=== PATIENT | male | born 1975 | race Caucasian/White ===

== ENCOUNTER → 2017-09-02 | Outpatient (CLI) | payer OTHER ==
[~2017-09-02] MED LIST: BUPR200T PO; CHOL500016 PO; CYPR4TAB PO; DICL50TA4 PO; HYDR40TA PO; IOHEXOL 180 MG/ML 10 ML VIAL. ONE; LAMO25TA PO; OXYC-328 PO; PRAZ5CAP2 PO; SERT100T PO; methylPREDNISolone ACETATE 40 MG/ML VIAL. ONE; methylPREDNISolone ACETATE 80 MG/ML VIAL. ONE
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
== END | disposition home or self-care (01) ==
LOC: PNCL 11:00
PROVIDERS: ATTEND Anesthesiology
DX: M50.123 Cervical disc disorder at C6-C7 level with radiculopathy (principal); M19.91 Primary osteoarthritis, unspecified site; H91.90 Unspecified hearing loss, unspecified ear; K21.9 Gastro-esophageal reflux disease without esophagitis; Z87.891 Personal history of nicotine dependence; Z98.890 Other specified postprocedural states
CPT/HCPCS: 62321; J1030; J1040

== ENCOUNTER → 2019-07-13 | Outpatient (CLI) | payer OTHER ==
[~2019-07-13] MED LIST changes: +CYCL10TA2 PO; -CYPR4TAB PO; +CYPR4TAB31 PO; +FLUO20CA8 PO; +GABA300C18 PO; -LAMO25TA PO; +LAMO25TA9 PO; +MELO15TA23 PO; -OXYC-328 PO; +OXYC1TAB22 PO; +RISP1TAB43 PO; +RISP2TAB33 PO
--- NOTE | 2019-07-13 23:06 | PAIN ---
DATE OF SERVICE: 07/13/2019 PROGRESS NOTE FOR PAIN CLINIC DIAGNOSES: Cervical radiculopathy with cervical degenerative disk disease and cervical herniated disk. HISTORY OF PRESENT ILLNESS: The patient is a 43-year-old male who returns for followup status post cervical epidural steroid injection, last seen on 09/03/2017. The patient had cervical epidural steroid injection at that time with about 50% improvement, which has lasted fairly long. The patient had some back surgery. In the meantime, he is doing quite well with his low back pain, but the neck is still bothering him with some radiation into the bilateral upper extremities, slightly more on the right than the left. It has been bothering him for about 3-4 months now, increasing in intensity, worse with activity, weightbearing, rotation of motion, especially to the left and driving. The patient reports it is an 8 on a scale of 10 at its worst in the past week, 7 on average, 6 at its least and is a 7 today. The patient reports it is aching, sharp, tingling, radiating in the upper extremities. No weakness or loss of function. It does not awaken him from sleep at least every 4 hours as well. The patient reports no new motor or sensory deficits, no changes. The patient's old MRI scan was reviewed as was his previous record. PHYSICAL EXAMINATION: VITAL SIGNS: The patient's blood pressure is 124/84, pulse 73, respirations are 18, temperature 98.4 degrees Fahrenheit, height is 6 feet, weight is 280 pounds. GENERAL: The patient is awake, alert, oriented, appropriate, very pleasant demeanor. HEENT: Head shows normocephalic, atraumatic. Extraocular movements are intact and symmetrical. Oral cavity: Mucous membranes moist and pink. Dentition is intact. NECK: Shows anterior throat supple without palpable lymphadenopathy noted. Swallow reflex symmetrical. CHEST: Shows normal on inspection. Breath sounds clear to auscultation bilaterally. HEART: Shows S1, S2 clear. No murmurs auscultated. ABDOMEN: Soft, nontender, nondistended. No palpable organomegaly is noted. No rebound or guarding demonstrated. BACK: Shows spine grossly in the midline. Cervical paraspinous muscle shows symmetrical on inspection, with palpation shows some moderate tenderness diffusely bilaterally in the inferior cervical aspect of the paraspinous musculature as well as the superior medial trapezius, more on the right than the left, but only moderately tender without radiation. No trigger points demonstrated. The patient has full rotational motion of cervical spine with some moderate tenderness with left lateral rotation past 45 degrees, but not with right. The patient shows pain with extension, not with forward flexion, but without radiation. EXTREMITIES: The patient's upper extremities show deep tendon reflexes 2+ in the biceps and triceps tendons. Motor exam is strong with community development technician strength rated at 5/5 as is bicep and tricep flexion and symmetrical. Peripheral pulses are 2+ at radial distribution. No peripheral edema is noted bilaterally. Options were discussed with the patient. The patient's old chart was reviewed. His current medication regimen updated. Current review of systems updated today as well. We will proceed with a cervical epidural steroid injection today with fluoroscopic guidance. Risks were discussed including but not limited to bleeding, infection, possibility of epidural hematoma, subsequent neurological compromise, dural puncture, headaches, spinal cord and/or nerve damage, side effects of steroid medication and poor results regarding pain control. The patient understands and wished to proceed. The patient will return to clinic in approximately 2 weeks for followup. He was counseled as to return appointment, activity level, and side effects to be aware of. DIAGNOSIS: Cervical radiculopathy with cervical degenerative disk disease and cervical herniated disk. PROCEDURE: Cervical epidural steroid injection, translaminar approach C6-C7 level using C-arm fluoroscopic guidance under sterile prep and drape using local anesthetic. MEDICATION INJECTED: The patient received a total of 120 mg Depo-Medrol plus 5 mL of preservative-free normal saline and 2 mL of contrast. CONDITION AT DISCHARGE: Stable. The patient tolerated procedure well, had no complications. CLARISSA ZENG MD DR: ARAM/jaxson JOB#: [id number] / [id number]
== END ==
LOC: PNCL 10:19
PROVIDERS: ATTEND Anesthesiology
DX: M50.123 Cervical disc disorder at C6-C7 level with radiculopathy (principal)
CPT/HCPCS: 62321; J1030; J1040; Q9965

== ENCOUNTER → 2019-07-27 | Outpatient (CLI) | payer OTHER ==
--- NOTE | 2019-07-28 11:01 | PAIN ---
DATE OF SERVICE: 07/27/2019 PROGRESS NOTE FOR PAIN CLINIC DIAGNOSES: Cervical radiculopathy with cervical degenerative disk disease and cervical herniated disk. HISTORY OF PRESENT ILLNESS: The patient is a 43-year-old male who returns for followup status post cervical epidural steroid injection x 1. The patient reports about 40% improvement overall at the base of the neck and his left shoulder pain. The patient reports the pain has been much more manageable. He has increased his activity with greater ease and comfort, sleeping better at night as well. He is turning his head to the left with much greater ease and ability. The patient reports the pain is an 8 on a scale of 10 at its worst over the past week, 5 on average, 4 at its least, and is a 4 today. The patient reports it is tingling, aching, and dull in the base of the neck, left shoulder, and left arm. The patient reports no new motor or sensory deficits, no new bowel or bladder incontinence or other complaints. PHYSICAL EXAMINATION: VITAL SIGNS: The patient's blood pressure 128/88, pulse 84, respirations 18, temperature 98.1 degrees Fahrenheit, height is 6 feet, and weight is 235 pounds. GENERAL: The patient is awake, alert, oriented, appropriate, very pleasant demeanor. HEENT: Shows normocephalic and atraumatic. Extraocular movements are intact and symmetrical. Oral cavity: Mucous membranes moist and pink. Dentition is intact. NECK: Shows anterior throat supple without palpable lymphadenopathy noted. Swallow reflex symmetrical. CHEST: Shows normal on inspection. Breath sounds clear to auscultation bilaterally. HEART: Shows S1 and S2 clear. No murmurs auscultated. ABDOMEN: Soft, nontender, and nondistended. No palpable organomegaly is noted. No rebound or guarding demonstrated. BACK: Shows spine grossly in the midline. Normal appearing cervical lordotic curvature, thoracic kyphotic curvature, and lumbar lordotic curvature. Cervical paraspinous muscle shows symmetrical on inspection, on palpation shows some moderate tenderness diffusely, but only diffusely without significant radiation. EXTREMITIES: The patient's upper extremities show deep tendon reflexes at 2+ in the biceps and triceps tendons. Motor exam is strong with specialist physicians strength rated at 5/5 as is biceps and triceps flexion and symmetrical and equal. Peripheral pulses are 2+ in radial distribution. No peripheral edema is noted bilaterally. Options were discussed with the patient. The patient's old chart was reviewed as his current medication regimen updated. Current review of systems updated today as well. We will proceed with a second in the series of cervical epidural steroid injection today with fluoroscopic guidance. Risks were again discussed including, but not limited to bleeding, infection, possibility of epidural hematoma, subsequent neurological compromise, dural puncture, headaches, spinal cord and/or nerve damage, side effects of steroid medication and poor results regarding pain control. The patient understands and wished to proceed. The patient will return to clinic in approximately 2 weeks for followup. He was counseled on return appointment, activity level, and side effects to be aware of. DIAGNOSES: Cervical radiculopathy with cervical degenerative disk disease and cervical herniated disk. PROCEDURE: Cervical epidural steroid injection, translaminar approach C6-C7 level using C-arm fluoroscopic guidance under sterile prep and drape using local anesthetic. MEDICATIONS INJECTED: The patient received a total of 120 mg Depo-Medrol plus 5 mL of preservative-free normal saline and 2 mL of contrast. CONDITION AT DISCHARGE: Stable. The patient tolerated procedure well, had no complications. CLARISSA ZENG MD DR: ARAM/jaxson JOB#: [id number] / [id number]
== END ==
LOC: PNCL 10:20
PROVIDERS: ATTEND Anesthesiology
DX: M50.123 Cervical disc disorder at C6-C7 level with radiculopathy (principal); M25.512 Pain in left shoulder
CPT/HCPCS: 62321; J1030; J1040; Q9965